=== PATIENT | female | born 2000 | race Caucasian/White ===

== ENCOUNTER 2023-06-03 12:12 | Observation (INO) ==
[2023-06-03] MEDS ORDERED: diphenhydrAMINE 50 MG/ML VIAL IV ONE (12:46)
[2023-06-03 12:47] LABS: POC Urine Bilirubin Negative (Negative); POC Urine Blood Negative (Negative); POC Urine Glucose Normal (Normal); POC Urine Ketones Negative (Negative); POC Urine Leukocytes Negative (Negative); POC Urine Nitrite Negative (Negative); POC Urine Protein Trace (Negative); POC Urine Urobilinogen Normal (Normal); POC Urine pH 6 (4.5-7.5)
--- NOTE | 2023-06-03 12:50 | Emergency Department Note ---
History of Present Illness General Chief complaint: Flank Pain Stated complaint: BACK AND FLANK PAIN Time Seen by Provider: 06/03/23 12:45 History of Present Illness Maximum Pain Intensity: 6 Patient is a healthy 22-year-old female who presents emergency department for evaluation of back and right flank pain. Symptoms started acutely this morning around 0400. She states that she woke from sleep with bilateral low back pain. She tried taking ibuprofen and using a heating pad but pain persisted and she could not get comfortable. It subsequently began to radiate around to the right flank/right lower quadrant. She was nauseous last night and vomited. She reports a similar back pain about a week ago but it resolved. She thought it was musculoskeletal. She currently rates her pain a /. She denies any associated urinary burning, frequency, urgency or hematuria. No history of kidney stones. No diarrhea. Last menstrual period was 1 week ago. She is on an oral contraceptive. She is sexually active, using condoms, not in a monogamous relationship. She denies any vaginal discharge. Home Medications Medication Instructions Recorded Confirmed Type oxycodone 5 mg tablet 5 mg PO Q6H PRN Pain #15 tabs 06/04/23 Rx Allergies Allergy/AdvReac Type Severity Reaction Status Date / Time shellfish derived Allergy Verified 06/03/23 12:46 Past Med/Surg History Medical History No significant past medical history Surgical History H/O wisdom tooth extraction Social History Smoking Status: Never smoker Hx Alcohol Use: No Hx Substance Use: No Preferred Language: American Communication Ability: Effective Network Project Manager Required: No Beliefs That Will Affect Care: None Current Living Situation: Other Current Living Situation Comment: student living on off-campus housing current occupational status: student Feels Safe at Home: Yes Safety Concerns: Feels Safe At This Time Assistive Devices: None Review of Systems A total of 10 systems reviewed and were otherwise negative Physical Exam Vital Signs Vital Signs - 24 hr 06/03/23 12:16 06/03/23 14:00 06/03/23 15:41 Temperature 36.3 C L Temperature Source Temporal Artery Scan Pulse Rate 92 H Pulse Rate [Finger] 75 96 H Respiratory Rate 16 18 14 Respiratory Effort / Characteristics Non-Labored Respiratory Depth Normal Blood Pressure 118/81 Blood Pressure [Left Arm] 103/56 L 118/82 Blood Pressure Mean 93 Blood Pressure Mean [Left Arm] 71 94 Blood Pressure Position Sitting Pulse Oximetry 100 100 100 Oxygen Delivery Method Room Air Room Air Room Air Sepsis Recent Fever Within 48 Hours No Sepsis New/Unexplained Change in Mental Status No Sepsis Action Taken by Nursing No Action Required CONSTITUTIONAL: Well-appearing 22-year-old female in no acute distress laying on the gurney. EYES: Pupils equal, round, reactive to light and accommodation. EOMs intact without nystagmus. Sclera are anicteric. ENT: Tympanic membranes intact, with normal landmarks. External canals are clear. Oral and nasopharynx are clear. Mucous membranes are moist, no lesions, tongue and gums appear normal. CARDIOVASCULAR: Regular rate and rhythm. Peripheral pulses easy to palpable. RESPIRATORY: Breath sounds equal and clear to auscultation. GI: Bowel sounds are present. Abdomen is soft, nondistended, tender to palpation in the right upper quadrant in the right midabdomen, with no guarding or rebound. No CVA tenderness. MUSCULOSKELETAL: Full range of motion of extremities x 4 with good strength. No cyanosis, edema, joint tenderness or swelling. No deformity. INTEGUMENTARY: No lesions or rash, normal skin turgor. NEUROLOGICAL: Alert, oriented, and cooperative. Cranial nerves, sensation and strength grossly intact. LYMPH: No lymphadenopathy. Course Course The patient was seen and assessed as above. External medical records were reviewed. She presents the emergency department for evaluation of right-sided abdominal pain. CBC with differential, CMP, urinalysis, serum hCG and lipase were ordered. She was hydrated normal saline solution. Patient reports an allergy to shellfish, and given the need for CT scan with IV contrast, I did discuss premedicating the patient with steroids and Benadryl and she was in agreement. She was given 50 mg of Benadryl and 40 mg of Solu-Medrol IV prior to CT scan. Laboratory studies per my interpretation note no leukocytosis, no anemia. No electrolyte imbalance noted. Renal functions are normal. Bilirubin and transaminases are within normal limits. Lipase is not indicative of acute pancreatitis. Serum hCG is negative. Urine microscopy is clear without signs of infection. CT scan of the abdomen and pelvis with IV contrast per my interpretation notes cholelithiasis with lateral wall thickening and trace pericholecystic fluid, concerning for acute cholecystitis. Appendix is visualized and is felt to be within normal limits. No bowel obstruction or bowel wall thickening. I did discuss the patient with Dr. Jordan, with general surgery, given the CT findings. I did order a gallbladder ultrasound to further assess the right upper quadrant. Please refer to surgical consultation for further information. All laboratory and diagnostic imaging studies were discussed with the patient. Initially, she expressed she would like to go home and pursue outpatient surgery if her ultrasound did not demonstrate acute cholecystitis. Unfortunately this was not the case. Ultrasound per my interpretation notes cholelithiasis with sonographic evidence for acute cholecystitis. This was discussed with the patient. General surgery would like to admit the patient to the hospital with plans for surgical intervention tomorrow. This was reviewed with her, and she was in agreement. Please refer to surgical notes for further information. Differential diagnoses entertained included GERD, gastritis, esophagitis, peptic ulcer disease, acute cholecystitis, symptomatic cholelithiasis, biliary colic, UTI, pyelonephritis, kidney stone, appendicitis, ovarian cyst, among others. Administered Medications Fentanyl Citrate (Fentanyl Citrate Pf 100 Mcg/2 Ml Vial) 50 mcg IV Q5M PRN PRN Reason: PACU Use Only-Pain Stop: 06/04/23 16:54 Last Admin: 06/04/23 10:45 Dose: 50 mcg Documented By: Admin: 06/04/23 10:36 Dose: 50 mcg Documented By: COLEMAN Lactated Ringer's (Lr) 1,000 mls @ 100 mls/hr IV .Q10H ELLIE Stop: 07/03/23 21:17 Last Infusion: 06/04/23 08:30 Dose: 0 mls/hr Documented By: ROSE MARY Infusion: 06/04/23 05:08 Dose: 100 mls/hr Documented By: Infusion: 06/04/23 04:37 Dose: 0 mls/hr Documented By: Admin: 06/03/23 22:30 Dose: 100 mls/hr Documented By: KYRA Ampicillin Sodium/Sulbactam Sodium 1,500 mg/ Sodium Chloride 100 mls @ 200 mls/hr IV Q6H ELLIE; Protocol Stop: 06/13/23 21:17 Last Admin: 06/04/23 09:25 Dose: 200 mls/hr Documented By: Infusion: 06/04/23 05:08 Dose: Infused Documented By: Admin: 06/04/23 04:37 Dose: 200 mls/hr Documented By: Infusion: 06/03/23 22:26 Dose: Infused Documented By: Admin: 06/03/23 21:47 Dose: 200 mls/hr Documented By: KYRA Discontinued Medications Bupivacaine HCl/Epinephrine Bitart (Bupivacaine/Epinephrine 0.25% 1:200,000 30 Ml Vial) Confirm Administered Dose 30 ml .ROUTE .STK-MED ONE Stop: 06/04/23 08:50 Last Admin: 06/04/23 10:15 Dose: 30 ml Documented By: [id number] Diphenhydramine HCl (Diphenhydramine 50 Mg/Ml Vial) 50 mg IV ONE ONE Stop: 06/03/23 12:47 Last Admin: 06/03/23 12:55 Dose: 50 mg Documented By: Sodium Chloride (Nss) 500 mls @ 999 mls/hr IV .Q31M ELLIE Stop: 07/03/23 12:59 Last Admin: 06/03/23 13:33 Dose: Not Given Documented By: Infusion: 06/03/23 13:33 Dose: Infused Documented By: Admin: 06/03/23 12:55 Dose: 999 mls/hr Documented By: Ioversol (Optiray 320 100ml) 91 ml IV ONCE ONE Stop: 06/03/23 14:43 Last Admin: 06/03/23 14:44 Dose: 91 ml Documented By: CARMELA Methylprednisolone (Methylprednisolone 40 Mg/Ml Vial) 40 mg IV NOW ONE Stop: 06/03/23 12:47 Last Admin: 06/03/23 12:55 Dose: 40 mg Documented By: Medical Decision Making Differential Diagnosis See ED course. Medical Records Attestation: I reviewed the patient's medical records. Home Medications Current Medication List: was personally reviewed by me Laboratory Data Attestation: I reviewed the patient's lab results. 06/03/23 12:18 06/04/23 07:42 Lab Results 06/03/23 06/03/23 06/03/23 Range/Units 12:18 12:34 12:38 WBC 7.64 (4.8-10.8) K/ul RBC 4.79 (4.20-5.40) M/uL Hgb 14.1 (12.0-16.0) g/dl Hct 42.3 (37.0-47.0) % MCV 88.3 (80.0-100.0) fL MCH 29.4 (25.0-34.0) pg MCHC 33.3 (32.0-36.0) g/dL RDW Std Deviation 39.9 (36.4-46.3) fL RDW Coeff of Flynn 12.3 (11.5-14.5) % Plt Count 238 (130-400) K/uL MPV 10.3 (9.4-12.4) fL Immature Gran % (Auto) 0.3 % Neut % (Auto) 62.0 % Lymph % (Auto) 29.6 % [place] % (Auto) 6.8 % Eos % (Auto) 0.9 % Baso % (Auto) 0.4 % Neut # (Auto) 4.74 (1.40-6.50) K/uL Lymph # (Auto) 2.26 (1.20-3.40) K/uL [place] # (Auto) 0.52 (0.11-0.59) K/uL Eos # (Auto) 0.07 (0.00-0.50) K/uL Baso # (Auto) 0.03 (0.00-0.20) K/uL Immature Gran # (Auto) 0.02 (0.01-0.20) K/uL Sodium 139 (136-145) mmol/L Potassium 3.9 (3.5-5.1) mmol/L Chloride 105 (98-107) mmol/L Carbon Dioxide 26 (21-32) mmol/L Anion Gap 8 (3-11) BUN 12 (6-23) mg/dl Creatinine 0.69 (0.6-1.2) mg/dl Est Cr Clr Drug Dosing 124.2 ml/min Est GFR ( Amer) 145.2 ml/min Est GFR (Non-Af Amer) 125.3 ml/min BUN/Creatinine Ratio 17.4 (10-20) Glucose 81 (70-99(Fasting)) mg/dl Calcium 9.8 (8.6-10.3) mg/dl Total Bilirubin 0.5 (0.2-1.0) mg/dl AST 13 (13-39) U/L ALT 13 (7-52) U/L Alkaline Phosphatase 54 (34-104) U/L Total Protein 7.4 (6.0-8.3) gm/dl Albumin 4.7 (3.4-5.0) gm/dl Globulin 2.7 (2.5-4.0) gm/dl Albumin/Globulin Ratio 1.7 (0.9-2) Lipase 32 (11-82) U/L HCG, Qual Negative (Negative) Urine Color Dark Yellow Urine Appearance Clear (Clear) Urine pH 6.5 (4.5-7.5) POC Urine pH 6 (4.5-7.5) Ur Specific [place] 1.034 H (1.000-1.030) Urine Protein Negative (Negative) POC Urine Protein Trace H (Negative) Urine Glucose (UA) Negative (Negative) POC Ur Glucose (UA) Normal (Normal) Urine Ketones Trace H (Negative) POC Urine Ketones Negative (Negative) Urine Blood Negative (Negative) POC Urine Blood Negative (Negative) Urine Nitrite Negative (Negative) POC Urine Nitrite Negative (Negative) Urine Bilirubin Negative (Negative) POC Urine Bilirubin Negative (Negative) Urine Urobilinogen Negative (Negative) POC Urine Urobilinogen Normal (Normal) Ur Leukocyte Esterase Negative (Negative) POC U Leukocyte Esteras Negative (Negative) POC Ur Test NEG (NEG) Imaging Data Attestation: I personally reviewed and interpreted this imaging study as follows: Radiologist's Impression: Abdomen/Pelvis CT 06/03/23 12:[address] WITH IV CONTRAST CT DOSE: 487.14 mGy.cm HISTORY: Acute right flank pain with nausea and vomiting RIGHT FLANK/RLQ PAIN, N/V TECHNIQUE: Multiaxial CT images of the abdomen and pelvis were performed following the IV administration of 91 cc of Optiray, A dose lowering technique was utilized adhering to the principles of ALARA. COMPARISON STUDY: None. FINDINGS: 4 mm subpleural solid nodules in the basal left lower lobe on image 38 and is favored to be benign. No free air. Unremarkable spleen, pancreas and adrenal glands. With gallbladder wall thickening with cholelithiasis. Possible stones within the cystic duct. Periportal edema with mild inflammatory stranding within the duane hepatis. Liver is otherwise unremarkable. Patent portal vein. Unremarkable kidneys. No hydronephrosis. 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 Bilateral ovarian follicles. Unremarkable abdominal aorta. No lymphadenopathy. Moderate rectal fecal retention in the appendix is not visualized in its entirety. The imaged portions appear noninflamed. No acute fracture. IMPRESSION: 1. Cholelithiasis with bladder wall thickening, trace pericholecystic fluid and possible gallstone within the cystic duct. Correlation with right upper quadrant ultrasound recommended in order to exclude acute cholecystitis. 2. No bowel obstruction or bowel wall thickening. 3. Moderate fecal retention of the rectum. ACT 112: Negative or not required by law. The above report was generated using voice recognition software. It may contain grammatical, syntax or spelling errors. Electronically signed by: Felton Butler M.D. 06/03/2023 3:00 PM Gallbladder Ultrasound 06/03/23 15:16 ULTRASOUND RIGHT UPPER QUADRANT ABDOMEN CLINICAL HISTORY: Right upper quadrant abdominal pain. Abnormal gallbladder seen by CT. COMPARISON STUDY: Abdominal CT performed the same day 06/03/2023. TECHNIQUE: Real-time, grayscale, and color flow sonography of the right upper quadrant of the abdomen was performed. Images are reviewed in the transverse and longitudinal planes. FINDINGS: Liver: The liver is normal in size and echotexture. There is no intrahepatic biliary ductal dilatation. The main portal vein is patent. Gallbladder: There are large shadowing calcified gallstones, one of which is located in the region of the gallbladder neck. There is also biliary sludge. The gallbladder wall is thickened and edematous, measuring up to 4 mm. There is trace pericholecystic fluid. A sonographic Reyes's sign is reportedly absent. The common bile duct measures up to 0.2 cm in diameter. Pancreas: Visualized portions of the pancreatic head and body are normal in appearance. The splenic vein is patent. Right kidney: Survey images of the right kidney demonstrate normal size and echotexture. There is no hydronephrosis. Ascites: None. IMPRESSION: 1. Cholelithiasis with sonographic evidence of acute cholecystitis. Surgical evaluation is advised. If warranted a nuclear hepatobiliary scan would be confirmatory. 2. There is no intra or extrahepatic biliary ductal dilatation. ACT 112: Negative or not required by law. Electronically signed by: Beni Mcpherson M.D. 06/03/2023 4:28 PM MDM Narrative See ED course. Impression & Plan Acute calculous cholecystitis Discharge Plan Visit Data Chief Complaint: Flank Pain Stated Complaint: BACK AND FLANK PAIN ED Provider: Avery Jung ED Midlevel Provider: Mart Castillo Discharge Problem: Acute calculous cholecystitis Patient Disposition: Admitted As Inpatient Discharge Instructions Interventions: ED Discharge Assessment Last Done: 06/03/23 21:16
[2023-06-03] MEDS: SODIUM CHLORIDE 0.9% 500 ML IV SCH ×2 (12:55→13:33)
[2023-06-03 13:07] LABS: Basophils # (auto) 0.03 K/uL (0.00-0.20); Basophils % (auto) 0.4 %; Eosinophils # (auto) 0.07 K/uL (0.00-0.50); Eosinophils % (auto) 0.9 %; Hematocrit (blood only) 42.3 % (37.0-47.0); Hemoglobin 14.1 g/dl (12.0-16.0); Immature Granulocytes # (auto) 0.02 K/uL (0.01-0.20); Immature Granulocytes % (auto) 0.3 %; Lymphocytes # (auto) 2.26 K/uL (1.20-3.40); Lymphocytes % (auto) 29.6 %; Mean Corpuscular Hemoglobin 29.4 pg (25.0-34.0); Mean Corpuscular Hgb Conc 33.3 g/dL (32.0-36.0); Mean Corpuscular Volume 88.3 fL (80.0-100.0); Mean Platelet Volume 10.3 fL (9.4-12.4); Monocytes # (auto) 0.52 K/uL (0.11-0.59); Monocytes % (auto) 6.8 %; Neutrophils # (auto) 4.74 K/uL (1.40-6.50); Platelet Count 238 K/uL (130-400); RDW Coefficient of Variation 12.3 % (11.5-14.5); RDW Standard Deviation 39.9 fL (36.4-46.3); Red Blood Count 4.79 M/uL (4.20-5.40); White Blood Count 7.64 K/ul (4.8-10.8)
[2023-06-03 13:13] LABS: Appearance Urine Clear (Clear); Bilirubin Urine Negative (Negative); Blood Urine Negative (Negative); Color Urine Dark Yellow; Glucose Urine UA Negative (Negative); Ketones Urine Trace (Negative); Leukocyte Esterase Urine Negative (Negative); Nitrite Urine Negative (Negative); Protein Urine Negative (Negative); Specific Gravity Urine 1.034 (1.000-1.030); Urobilinogen Urine Negative (Negative); pH Urine 6.5 (4.5-7.5)
[2023-06-03 13:19] LABS: Pregnancy Test, Serum Negative (Negative)
[2023-06-03 13:23] LABS: Albumin Globulin Ratio 1.7 (0.9-2); Albumin Level 4.7 gm/dl (3.4-5.0); BUN Creatinine Ratio 17.4 (10-20); Bilirubin,Total 0.5 mg/dl (0.2-1.0); Calcium 9.8 mg/dl (8.6-10.3); Creatinine Clr Calc Pharmacy 124.2 ml/min; Est GFR (African American) 145.2 ml/min; Est GFR (Non-African American) 125.3 ml/min; Globulin 2.7 gm/dl (2.5-4.0); Potassium 3.9 mmol/L (3.5-5.1); Total Protein 7.4 gm/dl (6.0-8.3)
[2023-06-03] MEDS ORDERED: OPTIRAY 320 100ml IV ONE (14:42)
--- NOTE | 2023-06-03 15:03 | CT Scan Report ---
ABDOMEN AND PELVIS CT WITH IV CONTRAST CT DOSE: 487.14 mGy.cm HISTORY: Acute right flank pain with nausea and vomiting RIGHT FLANK/RLQ PAIN, N/V TECHNIQUE: Multiaxial CT images of the abdomen and pelvis were performed following the IV administrat ion of 91 cc of Optiray, A dose lowering technique was utilized adhering to the principles of ALARA. COMPARISON STUDY: None. FINDINGS: 4 mm subpleural solid nodules in the basal left lower lobe on image 38 and is favored to be benign. No free air. Unremarkable spleen, pancreas and adrenal glands. With gallbladder wall thicken ing with cholelithiasis. Possible stones within the cystic duct. Periportal edema with mild inflammat ory stranding within the duane hepatis. Liver is otherwise unremarkable. Patent portal vein. Unremarkable kidneys. No hydronephrosis. Uterus is positioned within the right hemipelvis, possible u nicornuate morphology. Bilateral ovarian follicles. Unremarkable abdominal aorta. No lymphadenopathy. Moderate rectal fecal retention in the appendix is not visualized in its entirety. The imaged portion s appear noninflamed. No acute fracture. IMPRESSION: 1. Cholelithiasis with bladder wall thickening, trace pericholecystic fluid and possible gallstone wi thin the cystic duct. Correlation with right upper quadrant ultrasound recommended in order to exclud e acute cholecystitis. 2. No bowel obstruction or bowel wall thickening. 3. Moderate fecal retention of the rectum. ACT 112: Negative or not required by law. The above report was generated using voice recognition software. It may contain grammatical, syntax o r spelling errors. Electronically signed by: Felton Butler M.D. 06/03/2023 3:00 PM
--- NOTE | 2023-06-03 15:54 | Surgery Consultation ---
Date of Consultation June 03, 2023 Assessment & Plan (1) Cholelithiasis: Patient is a 22 yo female with no significant past medical history that presented to the [facility] ER today with c/o abdominal pain that started at 0400 today. She reports that she had associated N/V early this AM. Last time she ate was last night. Reports she has never had pain like this prior to this episode but does remember some discomfort last week but thought nothing of it. Denies pain associated with eating, taking routine medication or previous abdominal surgeries. Keep NPO WBC 7.6 LFT WNL T.bili 0.5 ast 13 alt 13 alk/ phosp. 54 CT scan reading : IMPRESSION: 1. Cholelithiasis with bladder wall thickening, trace pericholecystic fluid and possible gallstone within the cystic duct. Correlation with right upper quadrant ultrasound recommended in order to exclude acute cholecystitis. At the present moment the patient is reporting no abdominal pain since administration of medication. I discussed with the patient that the CT scan is showing possible acute cholecystitis and we would recommend acute surgical intervention such as a laparoscopic cholecystectomy. A Follow up U/S is ordered. The patient reported that her family is on their way here to watch the [employer] football game and if the US does not show acute cholecystitis she would like to go home and have her Gallbladder removed as an outpatient. The patient was discussed with Dr. Jordan and further recommendations will be forthcoming pending US results (2) Abdominal pain: (3) Acute calculous cholecystitis: Supervising Physician Co-Signing Physician Notes I personally saw and evaluated the patient with Nurys SCHWARTZ and agree with the assessment and plan. 22-year-old female with acute cholecystitis Her CT ultrasound which is personally viewed and interpreted by self, she has gallbladder wall thickening and pericholecystic fluid consistent with cholecystitis She is been admitted, kept n.p.o. and given IV antibiotic We will proceed with a laparoscopic cholecystectomy, possible open, possible intraoperative cholangiogram today Consent was obtained, risk discussed including bleeding, infection, bile leak, ductal injury History of Present Illness Reason for Consultation: Possible acute cholecystitis Attending Physician: Dr. Jung History of Present Illness Patient is a 22 yo female with no significant past medical history that presented to the [facility] ER today with c/o abdominal pain that started at 0400 today. She reports that she had associated N/V early this AM. Last time she ate was last night. Reports she has never had pain like this prior to this episode but does remember some discomfort last week but thought nothing of it. Denies pain associated with eating, taking routine medication or previous abdominal surgeries. Allergies Allergy/AdvReac Type Severity Reaction Status Date / Time shellfish derived Allergy Verified 06/03/23 12:46 Home Medications Medication Instructions Recorded Confirmed Type No Known Home Medications 06/03/23 06/03/23 History Patient History Medical History No significant past medical history Surgical History H/O wisdom tooth extraction Social History Smoking Status: Never smoker Hx Alcohol Use: No Hx Substance Use: No Preferred Language: Serbian Communication Ability: Effective Auto Claim Representative Required: No Beliefs That Will Affect Care: None Current Living Situation: Other Current Living Situation Comment: student living on off-campus housing current occupational status: student Feels Safe at Home: Yes Safety Concerns: Feels Safe At This Time Assistive Devices: None Review of Systems Constitutional: no fever and no chills Eyes: no blind spots and no worsening vision Ear, Nose, Mouth, Throat: no ear pain and no dysphagia Respiratory: no cough and no dyspnea Cardiovascular: no chest pain Gastrointestinal: + abdominal pain, + nausea and + vomitin g Genitourinary: no dysuria and no urinary hesitancy Musculoskeletal: no back pain and no neck pain Integumentary: no acne and no sores Neurologic: no gait abnormality, no paresthesia and no headache(s) Psychiatric: no behavioral changes and no depression Hematologic / Lymphatic: no easy bleeding and no easy bruising Physical Exam Physical Exam: alert oriented Constitutional: well developed, cooperative and comfortable; no acute distress Eyes: PERRL, conjunctivae normal, anicteric sclerae ENMT: external ear and nose normal, oropharynx normal Neck: trachea midline, no thyromegaly Respiratory: normal respiratory effort and able to speak in complete sentences; no respiratory distress Cardiovascular: RRR, no murmur, no edema Gastrointestinal (Abdomen): Inspection/Auscultation: abdomen not distended Percussion/Palpation: + abdomen tender (TTP in RLQ and mildly tender in RUQ) and abdomen soft; no guarding Musculoskeletal: no cyanosis or clubbing, extremities motor strength 5/5 Skin: no rashes, warm and dry Neurologic: PERRL, EOMI, accommodation nl, no face palsy, no dysarthria Psychiatric: A+Ox3, euthymic affect Results & Data Vital Signs (Past 12 Hours) Vital Signs Temp Pulse Pulse Resp BP BP Pulse Ox 06/03/23 15:41 96 H 14 118/82 100 06/03/23 14:00 75 18 103/56 L 100 06/03/23 12:16 97.3 F L 92 H 16 118/81 100 O2 Del Method 06/03/23 15:41 Room Air 06/03/23 14:00 Room Air 06/03/23 12:16 Room Air Diagnostic Findings [place], [place] [phone] CT Scan Report Patient: MARYAM URRUTIA Admit Date: 06/03/23 MR#: [id number] Address1: [address] [place] [address] Acct ID:[id number] Address2: [address] Date: 2000 [facility] Zip: [place] [address] Age: 22 Location: ED Sex: F Room/Bed: Att Phy: Diagnosis: BACK AND FLANK PAIN [place] Phy: [facility] Service Date: 06/03/23 Fam Phy: Interpreting Phy: Felton ButlerAdmit Phy: Ordering Phy: Becca Castillo PA cc: ~ ABDOMEN AND PELVIS CT WITH IV CONTRAST CT DOSE: 487.14 mGy.cm HISTORY: Acute right flank pain with nausea and vomiting RIGHT FLANK/RLQ PAIN, N/V TECHNIQUE: Multiaxial CT images of the abdomen and pelvis were performed following the IV administration of 91 cc of Optiray, A dose lowering technique was utilized adhering to the principles of ALARA. COMPARISON STUDY: None. FINDINGS: 4 mm subpleural solid nodules in the basal left lower lobe on image 38 and is favored to be benign. No free air. Unremarkable spleen, pancreas and adrenal glands. With gallbladder wall thickening with cholelithiasis. Possible stones within the cystic duct. Periportal edema with mild inflammatory stranding within the duane hepatis. Liver is otherwise unremarkable. Patent portal vein. Unremarkable kidneys. No hydronephrosis. 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 Bilateral ovarian follicles. Unremarkable abdominal aorta. No lymphadenopathy. Moderate rectal fecal retention in the appendix is not visualized in its entirety. The imaged portions appear noninflamed. No acute fracture. IMPRESSION: 1. Cholelithiasis with bladder wall thickening, trace pericholecystic fluid and possible gallstone within the cystic duct. Correlation with right upper quadrant ultrasound recommended in order to exclude acute cholecystitis. 2. No bowel obstruction or bowel wall thickening. 3. Moderate fecal retention of the rectum. ACT 112: Negative or not required by law. The above report was generated using voice recognition software. It may contain grammatical, syntax or spelling errors. Electronically signed by: Felton Butler M.D. 06/03/2023 3:00 PM Dictated: 06/03/231452 Transcribed: 06/03/231452 PG Care Time/CCT Total # of Minutes Spent Total Time Spent with Patient: Total time spent is greater than 50% in coordination of care (as documented) at patient's floor/unit and/or counseling patient: Coding Level of Care Code 09758 IN/OBS CONSULT LVL 5,80M Diagnoses Cholelithiasis K80.20 Abdominal pain R10.9 Acute calculous cholecystitis K80.00
--- NOTE | 2023-06-03 16:30 | Ultrasound Report ---
ULTRASOUND RIGHT UPPER QUADRANT ABDOMEN CLINICAL HISTORY: Right upper quadrant abdominal pain. Abnormal gallbladder seen by CT. COMPARISON STUDY: Abdominal CT performed the same day 06/03/2023. TECHNIQUE: Real-time, grayscale, and color flow sonography of the right upper quadrant of the abdomen was performed. Images are reviewed in the transverse and longitudinal planes. FINDINGS: Liver: The liver is normal in size and echotexture. There is no intrahepatic biliary ductal dilatatio n. The main portal vein is patent. Gallbladder: There are large shadowing calcified gallstones, one of which is located in the region of the gallbladder neck. There is also biliary sludge. The gallbladder wall is thickened and edematous, measuring up to 4 mm. There is trace pericholecystic fluid. A sonographic Reyes's sign is reportedl y absent. The common bile duct measures up to 0.2 cm in diameter. Pancreas: Visualized portions of the pancreatic head and body are normal in appearance. The splenic v ein is patent. Right kidney: Survey images of the right kidney demonstrate normal size and echotexture. There is no hydronephrosis. Ascites: None. IMPRESSION: 1. Cholelithiasis with sonographic evidence of acute cholecystitis. Surgical evaluation is advised. I f warranted a nuclear hepatobiliary scan would be confirmatory. 2. There is no intra or extrahepatic biliary ductal dilatation. ACT 112: Negative or not required by law. Electronically signed by: Beni Mcpherson M.D. 06/03/2023 4:28 PM
[2023-06-03] MEDS ORDERED: MoRPHine SULFATE 4 MG/ML 1 ML CARP\\VIAL IV PRN (21:18)
[2023-06-03] MEDS ORDERED: ONDANSETRON INJ 2 MG/ML 2 ML VIAL IV PRN (21:18)
[2023-06-03] MEDS ORDERED: MoRPHine SULFATE 2 MG/ML CARP IV PRN (21:18)
[2023-06-03] MEDS: AMPICILLIN SOD/SULBACTAM SOD 1,500 MG in SODIUM CHLOR 0.9% MINI-B 100 ML IV SCH (21:47)
[2023-06-03] MEDS: LACTATED RINGER'S 1,000 ML IV SCH (22:30)
[2023-06-04] MEDS: AMPICILLIN SOD/SULBACTAM SOD 1,500 MG in SODIUM CHLOR 0.9% MINI-B 100 ML IV SCH ×2 (04:37→09:25)
[2023-06-04] MEDS ORDERED: Nursing to Pharmacy Communication SCH (07:15)
--- NOTE | 2023-06-04 07:56 | History & Physical Bridge Note ---
Date of Service June 04, 2023 History & Physical Bridge Note I have examined the patient, reviewed the History & Physical and in the interval since the performance of the History & Physical I have noted the following changes of clinical significance: no changes noted
[2023-06-04] MEDS ORDERED: DEXAMETHASONE SOD INJ 4 MG/ML VIAL ONE (08:12)
[2023-06-04] MEDS ORDERED: KETOROLAC 30 MG/ML VIAL ONE (08:12)
[2023-06-04] MEDS ORDERED: PROPOFOL IV EMULSION 10 MG/ML 20 ML VIAL IV ONE (08:12)
[2023-06-04] MEDS ORDERED: LIDOCAINE 2% 2 ML VIAL/AMP(20MG/ML) INFIL ONE (08:12)
[2023-06-04] MEDS ORDERED: ROCURONIUM BROMIDE 10 MG/ML 5 ML VIAL IV ONE (08:12)
[2023-06-04] MEDS ORDERED: ONDANSETRON INJ 2 MG/ML 2 ML VIAL ONE (08:12)
[2023-06-04] MEDS ORDERED: MIDAZOLAM HCL 1 MG/ML 2ML VIAL ONE (08:13)
[2023-06-04] MEDS ORDERED: fentaNYL citrate PF 100 MCG/2 ML VIAL ONE ×3 (08:13→10:07)
[2023-06-04] MEDS ORDERED: SUGAMMADEX SODIUM 200 MG/2 ML VIAL IV ONE (08:13)
[2023-06-04 08:28] LABS: Albumin Globulin Ratio 1.8 (0.9-2); Albumin Level 4.1 gm/dl (3.4-5.0); BUN Creatinine Ratio 15.2 (10-20); Bilirubin,Total 0.7 mg/dl (0.2-1.0); Calcium 9.4 mg/dl (8.6-10.3); Creatinine Clr Calc Pharmacy 126.5 ml/min; Est GFR (African American) 147.4 ml/min; Est GFR (Non-African American) 127.2 ml/min; Globulin 2.3 gm/dl (2.5-4.0); Potassium 4.1 mmol/L (3.5-5.1); Total Protein 6.4 gm/dl (6.0-8.3)
[2023-06-04] MEDS ORDERED: BUPIVACAINE/EPINEPHRINE 0.25% 1:200,000 30 ML VIAL ONE (08:49)
--- NOTE | 2023-06-04 08:53 | Anesthesiology Consultation ---
Date of Service June 04, 2023 Assessment & Plan Chart Review Chart Review: Acceptable Risk for Surgery Consults Requested none History Surgery Operation Date: 06/04/23 08:55 Proposed Procedures p Laparoscopic Cholecystectomy Possible Open, Possible Cholangiogram - Chris Jordan DO Height/Weight Height: 5 ft 7 in Weight: 58.922 kg Allergies Allergy/AdvReac Type Severity Reaction Status Date / Time shellfish derived Allergy Verified 06/03/23 12:46 Medications Home Medications Medication Instructions Recorded Confirmed Last Taken No Known Home Medications 06/03/23 06/03/23 Unknown Active Medications Generic Name Dose Route Start Last Admin Trade Name Freq PRN Reason Stop Dose Admin Lactated Ringer's 1,000 mls @ 100 mls/hr 06/03/23 21:18 06/04/23 05:08 Lr IV 07/03/23 21:17 100 mls/hr .Q10H ELLIE Infusion Ampicillin Sodium/Sulbactam 100 mls @ 200 mls/hr 06/03/23 22:00 06/04/23 05:08 Sodium 1,500 mg/ Sodium IV 06/13/23 21:17 Infused Chloride Q6H ELLIE Infusion Protocol NPO Date Last Intake of Fluids: 06/03/23 Date Last Intake of Solids: 06/03/23 Past Medical History Medical History No significant past medical history Past Surgical History Surgical History H/O wisdom tooth extraction Social History Smoking Status: Never smoker Hx Alcohol Use: No Hx Substance Use: No Physical Exam Vital Signs Last Vital Signs Temp 36.9 C 06/04/23 08:05 Pulse 124 H 06/04/23 08:05 Resp 16 06/04/23 08:05 BP 104/75 06/04/23 08:05 Pulse Ox 97 06/04/23 08:05 O2 Del Method Room Air 06/04/23 08:05 Testing Laboratory Results 06/03/23 12:18 06/04/23 07:42 Urine Color Dark Yellow 06/03/23 12:34 Urine Appearance Clear (Clear) 06/03/23 12:34 Urine pH 6.5 (4.5-7.5) 06/03/23 12:34 Ur Specific [place] 1.034 (1.000-1.030) H 06/03/23 12:34 Urine Protein Negative (Negative) 06/03/23 12:34 Urine Glucose (UA) Negative (Negative) 06/03/23 12:34 Urine Ketones Trace (Negative) H 06/03/23 12:34 Urine Nitrite Negative (Negative) 06/03/23 12:34 Ur Leukocyte Esterase Negative (Negative) 06/03/23 12:34 06/03/23 12:34 POC Ur Test NEG
[2023-06-04] MEDS ORDERED: HYDROmorphone INJ 2 MG/ML SYR/VIAL IV PRN (08:54)
[2023-06-04] MEDS ORDERED: ONDANSETRON INJ 2 MG/ML 2 ML VIAL IV PRN ×2 (08:54→10:31)
[2023-06-04] MEDS ORDERED: PROMETHAZINE HCL 12.5 MG in SODIUM CHLORIDE 0.9% 50 ML IV PRN (08:54)
[2023-06-04] MEDS ORDERED: ePHEDrine sulfate 50 MG/ML AMP IV PRN (08:54)
[2023-06-04] MEDS ORDERED: ATROPINE SULFATE 0.1 MG/ML 10ML SYR IV PRN (08:54)
--- NOTE | 2023-06-04 10:22 | Post Operative Brief Note ---
PG Immediate Post Op with CF Date of Surgery June 04, 2023 Pre & Post Diagnosis Operation Date: 06/04/23 08:55 Pre-Op Diagnosis: Acute Cholecystitis Post-Op Diagnosis: Acute Cholecystitis I identified the patient and participated in the time-out.: Yes Procedure Operation Date: 06/04/23 08:55 Actual Procedures p Laparoscopic Cholecystectomy(Not Applicable) - Chris Jordan DO Surgeon Chris Jordan DO Fairing Man None Estimated Blood Loss 10 Findings See Below Acutely inflamed, edematous gallbladder consistent with acute cholecystitis Specimens Specimen Description: A. gallbladder Anesthesia Type General Complications none Disposition Disposition: Recovery Room
--- NOTE | 2023-06-04 10:24 | Operative Report ---
PG Post Operative Report Pre & Post Diagnosis Operation Date: 06/04/23 08:55 Pre-Op Diagnosis: Acute Cholecystitis Post-Op Diagnosis: Acute Cholecystitis I identified the patient and participated in the time-out.: Yes Procedure Operation Date: 06/04/23 08:55 Actual Procedures p Laparoscopic Cholecystectomy(Not Applicable) - Chris Jordan DO Surgeon Chris Jordan DO Copyright Expert None Estimated Blood Loss 10 Findings See Below Acutely inflamed, edematous gallbladder consistent with acute cholecystitis Fluids see anesthesia record Specimens Gallbladder to pathology Drains None Anesthesia Type General Complications none Disposition Disposition: Recovery Room Indications 22 yo female with acute cholecystitis Description of Procedure The patient was brought to the operating room and placed in the supine position with both arms extended. At this time she underwent general endotracheal anesthesia without any problems. She was given appropriate pre-operative antibiotics. Her abdomen prepped and draped in the usual sterile fashion. A timeout was called, the procedure was verified as Laparoscopic cholecystectomy, possible open, possible intra-operative cholangiogram. Surgical, nursing and anesthesia teams agreed and the procedure was begun. After injection of 0.25% Marcaine with epinephrine, a supraumbilical vertical incision was made and carried down to the fascia using S-retractors. The abdominal wall was then elevated with towel clamps and abdomen entered using the Veress needle confirming position using the saline drop test. Pneumoperitoneum was established. 5mm trocar was placed. Laparoscope was introduced. No injury from entry into the abdomen was visualized after inspection of the abdomen. Three further ports were placed under direct visualization. One 11mm in the subxiphoid region and two 5mm in the RUQ. At this time the abdomen was inspected and the gallbladder identified. The gallbladder itself was acutely inflamed and edematous consistent with acute cholecystitis. There were omental adhesions to the gallbladder itself that were lysed using sharp dissection. The gallbladder fundus was grasped and retracted cephalad. The gallbladder infundibulum was then grasped and retracted laterally. The cystic duct and cystic artery were then identified and skeletonized. The critical view of safety was obtained. They were both then clipped twice proximally and once distally and then divided using scissors. The gallbladder was then taken off of the liver bed using electrocautery and placed in an endocatch bag and removed from the subxiphoid port. The liver bed was then inspected and no bile leak or bleeding was evident. The subxiphoid port was then closed using 0-Vicryl using the suture passer. The trocars were then removed under direct visualization and no bleeding was present. Abdomen was desufflated. The skin was then closed using 4-0 Monocryl in a subcuticular fashion. Surgical glue was applied. Needle and sponge counts were correct x 2. At this time the patient was awoken from anesthesia and extubated having remained stable throughout the entire case. The patient was then transported to PACU in stable condition. I attest to the content of the Intraoperative Record and any orders documented therein. Any exceptions are noted below.
[2023-06-04] MEDS ORDERED: oxyCODONE HCL IR 5 MG TAB (IMMEDIATE RELEASE) PO PRN ×2 (10:31)
[2023-06-04] MEDS: fentaNYL citrate PF 100 MCG/2 ML VIAL IV PRN ×2 (10:36→10:45)
[2023-06-04] MEDS ORDERED: SODIUM CHLORIDE 0.9% 1,000 ML IV SCH (10:45)
--- NOTE | 2023-06-04 11:00 | Anesthesiology Progress Note ---
Date of Service June 04, 2023 Anesthesia Post Procedure Vital Signs Vital Signs: Temp Pulse Pulse Pulse Resp BP BP 06/04/23 10:50 90 12 117/69 06/04/23 10:40 103 H 18 120/69 06/04/23 10:30 36.0 C L 110 H 16 118/64 06/04/23 08:05 36.9 C 124 H 16 104/75 06/04/23 07:59 36.5 C 72 20 103/64 06/04/23 00:29 36.6 C 93 H 16 106/71 06/03/23 23:53 86 18 106/63 06/03/23 22:35 97 H 18 110/71 06/03/23 17:35 78 14 114/74 06/03/23 15:41 96 H 14 118/82 06/03/23 14:00 75 18 103/56 L 06/03/23 12:16 36.3 C L 92 H 16 118/81 Pulse Ox O2 Del Method O2 Flow Rate 06/04/23 10:50 100 Room Air 06/04/23 10:40 100 Oxymask 4 06/04/23 10:30 98 Oxymask 6 06/04/23 08:05 97 Room Air 06/04/23 07:59 100 Room Air 06/04/23 00:29 98 Room Air 06/03/23 23:53 99 Room Air 06/03/23 22:35 100 06/03/23 17:35 97 Room Air 06/03/23 15:41 100 Room Air 06/03/23 14:00 100 Room Air 06/03/23 12:16 100 Room Air Pain Intensity Right Upper Abdomen: Pain Intensity: 0 Abdomen: Pain Intensity: 3 Transfer of Care Handoff Completed per policy Notes Mental Status: alert / awake / arousable and participated in evaluation Patient Amnestic to Procedure: Yes Nausea / Vomiting: adequately controlled Pain: adequately controlled Airway Patency, RR, SpO2: stable & adequate BP & HR: stable & adequate Hydration State: stable & adequate Anesthetic Complications: no major complications apparent
[2023-06-04] MEDS: LACTATED RINGER'S 1,000 ML IV SCH (11:27)
[2023-06-04] MEDS ORDERED: ACETAMINOPHEN 325 MG TAB PO PRN (13:25)
[2023-06-04] MEDS ORDERED: IBUPROFEN 600 MG TAB PO PRN (13:25)
--- NOTE | 2023-06-07 14:46 | Discharge Summary ---
Date of Service June 07, 2023 Principal Diagnosis acute cholecystitis Discharge Exam Constitutional well developed, cooperative and comfortable; no acute distress Respiratory normal respiratory effort and able to speak in complete sentences; no respiratory distress Gastrointestinal (Abdomen) Inspection/Auscultation: abdomen not distended Percussion/Palpation: + abdomen tender and abdomen soft; no guarding Discharge Data Allergies Allergy/AdvReac Type Severity Reaction Status Date / Time shellfish derived Allergy Verified 06/03/23 12:46 Procedures Performed Operation Date: 06/04/23 08:55 Actual Procedures p Laparoscopic Cholecystectomy(Not Applicable) - Chris Jordan DO Ordered Studies 06/03/23 12:46 CT Abd and Pelvis [CT abd pelvis IV con only] Stat 06/03/23 15:16 US gallbladder Stat Hospital Course (1) Acute calculous cholecystitis: You presented to the [facility] ER on 06/03/23 with c/o abdominal pain, N/V. A CT scan and ultrasound showed that you had acute cholecystitis. You were admitted to the hospital and underwent a Laparoscopic Cholecystectomy on 06/04/[address] Jordan. You were tolerating a diet, and pain was controlled. You were deemed stable for discharge 06/04/23 and given return precautions. You were to follow up in the office with Dr. Jordan in 2 weeks as an outpatient. Total Time Total Time Spent Total Time Spent (In Minutes): 20 Discharge Plan Discharge Items Patient Disposition: Home - Self-Care Reason For Visit: ACUTE CHOLECYSTITIS Discharge Diagnosis: Laparoscopic Cholecystectomy Activity: Per Instructions section Lifting: No more than 10 pounds Bathing Comment: you can shower, no pools or baths for 2 weeks Exercise/Sports: Wait until after follow-up appointment Driving/Machine Use: no driving if taking narcotic pain medication Non-emergency contact: Surgeon Call non-emergency contact if: you have any medication questions, your symptoms worsen, your pain is not controlled, your temperature is above 101.5, your wound has increased redness, your wound has increased drainage and your wound pain has increased Follow-up/Referrals: Chris Jordan DO [Physician] - (call the office to be seen in 2 weeks ) [facility] [Primary Care Provider] - Diet: Regular Addtl Attending Provider Instructions: You may remove your outer surgical dressing on 06/06/23. You will have small white bandages on underneath that are over your incision. You may shower with these on. They will tend to fall off on their own in a 7-10 days. SPECIAL CARE INSTRUCTIONS: * May use ibuprofen for pain as tolerated. * Expect some swelling and bruising. Call your doctor if: * Temperature above 101 degrees * Yellowing of the skin or whites of the eyes * There is increased drainage or redness from any incision, increased pain * You have any unanswered questions or concerns [phone]. FOLLOW UP VISIT: If not already scheduled, please call the office for a follow-up visit. OFFICE PHONE NUMBER: Dr. Jordan Office Pending Studies at Discharge: Yes Studies:: surgical pathology Stand-Alone Forms: My [facility] eSNF, Pain - Opioid Pain Management Medications and DC Order Prescriptions: New oxycodone 5 mg tablet 5 mg PO Q6H PRN (Reason: Pain) Qty: 15 0RF Discharge Orders: Discharge Order (Routine); Ordered 06/04/23 Ordered By: Chris Harper/Other Patient Handouts: After Gallbladder Surgery, Having Laparoscopic Cholecystectomy, Cholecystectomy Dc Admission Data Admit Date/Time: 06/03/23 17:08 Attending Provider: Chris Jordan Admit Provider: Chris Jordan Primary Care Provider: [facility] Other Interventions: Discharge Summary Assessment (RN) Last Done: 06/04/23 13:35 Coding Level of Care Code 33454 IN/OBS DISCH 30 MIN/LESS Diagnoses Acute calculous cholecystitis K80.00
== END 2023-06-04 14:40 | disposition home or self-care (01) ==
LOC: ED 12:12 → EDINP 17:08 → INTOOBSV 17:08 → 3N 21:16